=== PATIENT | male | born 1950 | race Hispanic/Latino ===

== ENCOUNTER → 2017-07-30 | Outpatient (CLI) | payer MEDICARE ==
[~2017-07-30] MED LIST: REGADENOSON 0.4 MG/5 ML PF SYG IVP SCH
== END | disposition home or self-care (01) ==
LOC: SHCH 09:41
PROVIDERS: ATTEND Internal Medicine Cardiovascular Disease
DX: Z01.810 Encounter for preprocedural cardiovascular examination (principal)
CPT/HCPCS: 78452; 93017; 96374; A9500 ×2; J2785

== ENCOUNTER → 2020-10-10 | Outpatient (CLI) | payer MEDICARE | END | disposition home or self-care (01) | LOC: RAH 12:31 | PROVIDERS: ATTEND Internal Medicine Cardiovascular Disease | DX: J44.9 Chronic obstructive pulmonary disease, unspecified (principal); R91.8 Other nonspecific abnormal finding of lung field; I25.10 Atherosclerotic heart disease of native coronary artery without angina pectoris; J98.11 Atelectasis; J18.9 Pneumonia, unspecified organism; I50.40 Unspecified combined systolic (congestive) and diastolic (congestive) heart failure; K76.0 Fatty (change of) liver, not elsewhere classified; M47.815 Spondylosis without myelopathy or radiculopathy, thoracolumbar region; N28.1 Cyst of kidney, acquired | CPT/HCPCS: 71250 ==

== ENCOUNTER → 2021-01-11 | Outpatient (CLI) | payer MEDICARE ==
[~2021-01-11] VITALS: Ht 167.6 cm; Wt 81.2 kg
== END | disposition home or self-care (01) ==
LOC: SHCH 08:23
PROVIDERS: ATTEND Internal Medicine Cardiovascular Disease
DX: R42 Dizziness and giddiness (principal); R07.9 Chest pain, unspecified; R07.0 Pain in throat; R06.00 Dyspnea, unspecified
CPT/HCPCS: 78452; 93017; 96374; A9500 ×2

== ENCOUNTER 2021-02-28 07:00 | Observation (INO) | payer MEDICARE ==
[2021-02-27 13:43] LABS: BASOPHILS % (AUTO) 0.2 % (0.0-5.0); EOSINOPHILS % (AUTO) 5.6 % (0.0-8.0); HEMATOCRIT 29.6 % (42-54); LYMPHOCYTES % (AUTO) 38.1 % (21.0-51.0); MEAN CORPUSCULAR HEMOGLOBIN 36.3 pg (27.0-33.0); MEAN CORPUSCULAR HGB CONC 33.1 g/dL (32.0-36.0); MEAN CORPUSCULAR VOLUME 109.6 fL (79-99); MONOCYTES % (AUTO) 7.4 % (3.0-13.0); NEUTROPHILS % (AUTO) 48.5 % (40.0-77.0); PLATELET COUNT (AUTO) 109 K/uL (130-400); RED CELL DISTRIBUTION WIDTH 14.5 % (11.0-15.5); WHITE BLOOD COUNT (AUTO) 4.3 K/uL (4.8-10.8)
[2021-02-27 13:44] LABS: APPEARANCE,URINE Clear (CLEAR); BILIRUBIN,URINE Negative (NEGATIVE); COLOR,URINE Yellow (YELLOW); GLUCOSE, URINE (UA) Negative (NEGATIVE); KETONES,URINE Negative (NEGATIVE); LEUKOCYTE ESTERASE ,URINE Negative (NEGATIVE); NITRATE,URINE Negative (NEGATIVE); OCCULT BLOOD,URINE Negative (NEGATIVE); PH,URINE 7.5 (5.0-8.0); PROTEIN,URINE Negative (NEGATIVE); UROBILINOGEN,URINE 0.2 mg/dL (0.2-1.0)
[2021-02-27 13:52] LABS: CREATININE 1.3 mg/dL (0.5-1.5); INR 1.59 (0.85-1.15); POTASSIUM 4.7 mmol/L (3.5-5.1); PROTHROMBIN TIME 16.6 SEC (9.6-11.6)
[2021-02-27 13:53] LABS: PARTIAL THROMBOPLASTIN TIME 31.6 SEC (26.3-35.5)
[2021-02-27 16:42] VITALS: BP 99/57
[~2021-02-28] VITALS: Ht 167.6 cm; Wt 79.1 kg
[2021-02-28] VITALS (11 sets, daily range): BP systolic 124–149; BP diastolic 56–78
[~2021-02-28 07:00] MED LIST changes: +0.9% NACL 500ML IV.SOLN 500 ML IV SCH; +ALBU8.5H8 IH; +ATOR40TA69 PO; +FLUT1AER IH; +FURO-152 PO; +LISI20TA24 PO; +METF-445 PO; +QUET300T18 PO; -REGADENOSON 0.4 MG/5 ML PF SYG IVP SCH; +TRAZ150T79 PO; +VITAMIN B12 PO; +WARF-57 PO
[2021-02-28] MEDS ORDERED: 0.9%NACL 1000ML 1,000 ML IV ONE (08:26)
[2021-02-28 09:12] LABS: INR 1.27 (0.85-1.15); PROTHROMBIN TIME 13.5 SEC (9.6-11.6)
[2021-02-28] MEDS ORDERED: BIVALIRUDIN 250 MG/VIAL IV ONE (10:12)
[2021-02-28] MEDS ORDERED: MIDAZOLAM HCL 1 MG/ML 2ML VIAL ONE (10:12)
[2021-02-28] MEDS ORDERED: IOHEXOL-350 50ML VIAL IV ONE (10:12)
[2021-02-28] MEDS ORDERED: IOHEXOL 350 MG/ML 100ML INFUS..BTL IV ONE (10:12)
[2021-02-28] MEDS ORDERED: NITROGLYCERIN 2 MG VIAL IV ONE (10:12)
[2021-02-28] MEDS ORDERED: LIDOCAINE HCL 400MG/20ML VIAL ONE (10:13)
[2021-02-28] MEDS ORDERED: FENTANYL CITRATE PF 50 MCG/1 ML 2ML VIAL ONE (11:39)
[2021-02-28] MEDS ORDERED: CLOPIDOGREL 300MG TAB ONE (11:58)
[2021-02-28] MEDS ORDERED: ASPIRIN 325MG EC TAB PO ONE (11:59)
[2021-02-28] MEDS ORDERED: ONDANSETRON 4MG INJ IVP PRN (13:00)
[2021-02-28] MEDS ORDERED: DEXTROSE 50%-WATER 50 ML DISP.SYRIN IV PRN (13:00)
[2021-02-28] MEDS ORDERED: 0.9%NACL 1000ML 1,000 ML IV SCH (13:00)
[2021-02-28] MEDS ORDERED: GLUCAGON 1MG KIT 1 MG ML IM PRN (13:00)
[2021-02-28] MEDS: INSULIN HUMULIN R 100 UNIT/ML 3ML SQ SCH ×2 (16:30→20:45)
[2021-02-28] MEDS: WARFARIN SODIUM 5 MG TAB PO SCH (16:54)
[2021-02-28] MEDS ORDERED: ALBUTEROL 0.083% 2.5 MG/3 ML INH IH SCH (18:00)
[2021-02-28] MEDS ORDERED: BUDESONIDE 0.5 MG/2 ML INH IH SCH (18:00)
[2021-02-28] MEDS ORDERED: TRAZODONE HCL 50 MG TAB PO SCH (21:00)
[2021-02-28] MEDS ORDERED: QUETIAPINE FUMARATE 100 MG TAB PO SCH (21:00)
[2021-02-28] MEDS ORDERED: ATORVASTATIN 40 MG TABLET PO SCH (21:00)
[2021-03-01] VITALS: BP 102/54
[2021-03-01 04:00] VITALS: BP 116/51
[2021-03-01 04:31] LABS: HEMATOCRIT 26.2 % (42-54); MEAN CORPUSCULAR HEMOGLOBIN 36.5 pg (27.0-33.0); MEAN CORPUSCULAR HGB CONC 33.6 g/dL (32.0-36.0); MEAN CORPUSCULAR VOLUME 108.7 fL (79-99); RED BLOOD CELL COUNT(AUTO) 2.41 MIL/uL (4.50-6.20); RED CELL DISTRIBUTION WIDTH 14.1 % (11.0-15.5)
[2021-03-01 04:41] LABS: INR 1.18 (0.85-1.15); PROTHROMBIN TIME 12.7 SEC (9.6-11.6)
[2021-03-01 04:47] LABS: POTASSIUM 4.1 mmol/L (3.5-5.1)
[2021-03-01] MEDS: INSULIN HUMULIN R 100 UNIT/ML 3ML SQ SCH ×2 (06:49→11:30)
[2021-03-01 08:33] VITALS: BP 139/69
[2021-03-01] MEDS ORDERED: ASPIRIN 81MG CHEW TAB PO SCH (09:00)
[2021-03-01] MEDS ORDERED: CLOPIDOGREL 75MG TAB PO SCH (09:00)
[2021-03-01] MEDS ORDERED: LISINOPRIL 20 MG TABLET PO SCH (09:00)
[2021-03-01] MEDS ORDERED: PANTOPRAZOLE 40 MG TAB DR PO SCH (09:00)
[2021-03-01] MEDS ORDERED: AEC81 PO (09:45)
[2021-03-01] MEDS ORDERED: ENOX80DI8 SQ (09:45)
[2021-03-01] MEDS ORDERED: CLOP75TA14 PO (09:45)
[2021-03-01] MEDS ORDERED: PANT40TA55 PO (09:58)
[2021-03-01] MEDS ORDERED: ENOXAPARIN SODIUM 80 MG/0.8 ML SQ ONE ×2 (10:00→12:49)
[2021-03-01] MEDS ORDERED: WARFARIN SODIUM 5 MG TAB PO SCH (10:00)
[2021-03-01 11:34] VITALS: BP 137/67
[2021-03-01] MEDS ORDERED: ENOXAPARIN SODIUM 80 MG/0.8 ML SQ SCH (13:00)
[2021-03-01] MEDS: WARFARIN SODIUM 5 MG TAB PO SCH (13:07)
[2021-03-02] MEDS ORDERED: FUROSEMIDE 20 MG TABLET PO SCH (09:00)
== END 2021-03-01 15:01 | disposition home or self-care (01) ==
LOC: DAH 07:00 → DAHIP 07:01 → 4CH 13:54
PROVIDERS: ADMIT Internal Medicine; ATTEND Internal Medicine
DX: I25.10 Atherosclerotic heart disease of native coronary artery without angina pectoris (principal); E11.9 Type 2 diabetes mellitus without complications; E03.9 Hypothyroidism, unspecified; E78.5 Hyperlipidemia, unspecified; F20.9 Schizophrenia, unspecified; F43.10 Post-traumatic stress disorder, unspecified; I09.9 Rheumatic heart disease, unspecified; I11.0 Hypertensive heart disease with heart failure; I50.32 Chronic diastolic (congestive) heart failure; Z79.01 Long term (current) use of anticoagulants; Z79.02 Long term (current) use of antithrombotics/antiplatelets; Z95.5 Presence of coronary angioplasty implant and graft; Z95.2 Presence of prosthetic heart valve; Z96.651 Presence of right artificial knee joint
CPT/HCPCS: 36415 ×3; 71045; 80048 ×2; 81003; 82948 ×5; 85025; 85027; 85610 ×3; 85730; 93005; 93458; 96372; A4215; A4216; A4221; A4222; A4223 ×3; A4606; A4663; C1725; C1760; C1769; C1874; C1887; C1894 ×2; C9600; G0378 ×26; J0583; J1644; J1650; J2250; J3010; J3490 ×2; J7030; Q9965 ×2; Q9967 ×2; 99156; 99157

== ENCOUNTER 2021-05-31 11:52 | Emergency (ER) | payer MEDICARE ==
[~2021-05-31] VITALS: Ht 170.2 cm; Wt 68.0 kg
[~2021-05-31 11:52] MED LIST changes: -0.9% NACL 500ML IV.SOLN 500 ML IV SCH; +AEC81 PO; +CLOP75TA14 PO; +ENOX80DI8 SQ; +PANT40TA55 PO; -QUET300T18 PO; +QUET300T19 PO
[2021-05-31 11:53] VITALS: BP 117/73
[2021-05-31] MEDS ORDERED: ACET-2247 PO (12:14)
[2021-05-31] MEDS ORDERED: CLIN-141 PO (12:14)
[2021-05-31] MEDS ORDERED: CLINDAMYCIN 150 MG CAP PO SCH (12:30)
[2021-05-31] MEDS ORDERED: ACETAMINOPHEN 500 MG TABLET PO SCH (12:30)
[2021-05-31 12:44] LABS: EOSINOPHILS % (AUTO) 2.1 % (0.0-8.0); HEMATOCRIT 25.2 % (42-54); LYMPHOCYTES % (AUTO) 22.2 % (21.0-51.0); MEAN CORPUSCULAR HEMOGLOBIN 36.9 pg (27.0-33.0); MEAN CORPUSCULAR HGB CONC 34.1 g/dL (32.0-36.0); MEAN CORPUSCULAR VOLUME 108.2 fL (79-99); MONOCYTES % (AUTO) 9.1 % (3.0-13.0); NEUTROPHILS % (AUTO) 66.1 % (40.0-77.0); PLATELET COUNT (AUTO) 116 K/uL (130-400); RED BLOOD CELL COUNT(AUTO) 2.33 MIL/uL (4.50-6.20); RED CELL DISTRIBUTION WIDTH 14.8 % (11.0-15.5); WHITE BLOOD COUNT (AUTO) 3.8 K/uL (4.8-10.8)
[2021-05-31 12:56] LABS: POTASSIUM 3.6 mmol/L (3.5-5.1)
[2021-05-31 13:02] LABS: ALBUMIN 3.2 g/dL (3.5-5.0); BILIRUBIN,TOTAL 0.3 mg/dL (0.2-1.0); TOTAL PROTEIN, SERUM 6.5 g/dL (6.0-8.3)
== END 2021-05-31 13:27 | disposition home or self-care (01) ==
LOC: EDH 11:52
DX: N50.89 Other specified disorders of the male genital organs (principal); D64.9 Anemia, unspecified; E11.9 Type 2 diabetes mellitus without complications; E78.00 Pure hypercholesterolemia, unspecified; I10 Essential (primary) hypertension; Z79.01 Long term (current) use of anticoagulants; Z79.51 Long term (current) use of inhaled steroids; Z79.82 Long term (current) use of aspirin; Z79.84 Long term (current) use of oral hypoglycemic drugs; Z79.899 Other long term (current) drug therapy; Z95.2 Presence of prosthetic heart valve
CPT/HCPCS: 36415; 80053; 82948; 85025

== ENCOUNTER → 2023-04-13 | Outpatient (CLI) | payer MEDICARE ==
[~2023-04-13] MED LIST changes: +ACET-2247 PO; +CLIN-141 PO; +CLOP-31 PO; -CLOP75TA14 PO
== END | disposition home or self-care (01) ==
LOC: RAH 09:17
PROVIDERS: ATTEND Internal Medicine Medical Oncology
DX: K76.0 Fatty (change of) liver, not elsewhere classified (principal); N28.1 Cyst of kidney, acquired; D50.9 Iron deficiency anemia, unspecified
CPT/HCPCS: 76700

== ENCOUNTER 2023-07-14 13:05 | Inpatient (IN) | payer MEDICARE ==
[~2023-07-14] VITALS: Ht 167.6 cm; Wt 77.7 kg
[2023-07-14] MEDS ORDERED: ONDANSETRON 4MG INJ IVP ONE (14:00)
[2023-07-14] MEDS ORDERED: MORPHINE 4 MG SYG IVP ONE (14:00)
[2023-07-14] MEDS ORDERED: LACTATED RINGERS 1000ML 1,000 ML IV ONE (15:30)
[2023-07-14] MEDS ORDERED: HYDROMORPHONE 1 MG INJ IVP ONE (15:30)
[2023-07-14 16:32] LABS: MEAN CORPUSCULAR HEMOGLOBIN 36.6 pg (27.0-33.0); MEAN CORPUSCULAR HGB CONC 32.8 g/dL (32.0-36.0); MEAN CORPUSCULAR VOLUME 111.6 fL (79-99); NUCLEATED RED BLOOD CELLS 29.6 % (0.0-0.19); PLATELET COUNT (AUTO) 162 K/uL (130-400); RED BLOOD CELL COUNT(AUTO) 1.72 MIL/uL (4.50-6.20); RED CELL DISTRIBUTION WIDTH 19.5 % (11.0-15.5); WHITE BLOOD COUNT (AUTO) 4.5 K/uL (4.8-10.8)
[2023-07-14 16:50] LABS: HEMATOCRIT 19.2 % (42-54)
[2023-07-14 16:54] LABS: ALBUMIN 2.9 g/dL (3.5-5.0); BILIRUBIN,TOTAL 0.8 mg/dL (0.2-1.0); CREATININE 1.5 mg/dL (0.5-1.5); POTASSIUM 4.5 mmol/L (3.5-5.1); TOTAL PROTEIN, SERUM 5.7 g/dL (6.0-8.3)
[2023-07-14 17:25] LABS: BAND NEUTROPHILS % (MANUAL) 7 % (0-2); LYMPHOCYTES % (MANUAL) 24 % (22-44); MAN.DIFF COMMENT-IMPRESSION MANUAL DIFFERENTIAL; METAMYELOCYTES % 2 % (0-0); SEGMENTED NEUTROPHILS % 67 % (40-70); TOTAL CELLS COUNTED 100
[2023-07-14 17:26] LABS: PLATELET MORPHOLOGY COMMENT ADEQUATE
[2023-07-14] MEDS ORDERED: LACTULOSE 20 GM/30 ML UDCUP PO PRN (19:00)
[2023-07-14] MEDS ORDERED: ACETAMINOPHEN 325 MG TAB PO PRN ×2 (19:00)
[2023-07-14] MEDS ORDERED: ONDANSETRON 4MG INJ IV PRN (19:00)
[2023-07-14] MEDS: LACTATED RINGERS 1000ML 1,000 ML IV SCH (19:07)
[2023-07-14] MEDS: MORPHINE 2 MG SYG IV PRN (19:08)
[2023-07-14] MEDS ORDERED: NON-FORMULARY MEDICATION 1 EACH (Trazodone HCl 150 MG) PO SCH (21:00)
[2023-07-14] MEDS ORDERED: NON-FORMULARY MEDICATION 1 EACH (Quetiapine Fumarate 300 MG) PO SCH (21:00)
[2023-07-14] MEDS ORDERED: FAMOTIDINE 20MG VIAL IV SCH (21:00)
[2023-07-14] MEDS: TRAZODONE HCL 100 MG TABLET PO PRN (21:09)
[2023-07-14] MEDS: QUETIAPINE FUMARATE 100 MG TAB PO SCH (21:09)
[2023-07-14] MEDS: ATORVASTATIN 40 MG TABLET PO SCH (21:09)
[2023-07-14] MEDS ORDERED: HYDROMORPHONE 0.5 MG SYG (0.5MG/0.5ML) IVP ONE (21:30)
[2023-07-14 22:15] VITALS: BP 125/82; PULSE 101; RESP 19
[2023-07-14 22:17] LABS: HEMATOCRIT 17.3 % (42-54)
[2023-07-14 22:22] LABS: INR 1.8 (0.85-1.15); PROTHROMBIN TIME 20.1 SEC (9.6-11.6)
[2023-07-14] MEDS ORDERED: ALBUTEROL 0.083% 2.5 MG/3 ML INH IH ONE (22:39)
[2023-07-15] VITALS (13 sets, daily range): BP systolic 102–132; BP diastolic 42–74; PULSE 70–106; RESP 16–20; O2SAT 94–96
[2023-07-15] MEDS ORDERED: ALBUTEROL SULFATE IH SCH
[2023-07-15] MEDS: ALBUTEROL 0.083% 2.5 MG/3 ML INH IH SCH ×5 (00:07→23:12)
[2023-07-15 01:51] LABS: HEMATOCRIT 17.2 % (42-54)
[2023-07-15] MEDS: INSULIN HUMULIN R 100 UNIT/ML 3ML SQ SCH ×6 (02:24→22:59)
[2023-07-15] MEDS: LACTATED RINGERS 1000ML 1,000 ML IV SCH ×2 (04:38→09:41)
[2023-07-15 05:25] LABS: HEMATOCRIT 16.6 % (42-54)
[2023-07-15 05:32] LABS: CREATININE 1.8 mg/dL (0.5-1.5)
[2023-07-15 05:42] LABS: POTASSIUM 6.1 mmol/L (3.5-5.1)
[2023-07-15 08:59] LABS: HEMATOCRIT 16.5 % (42-54)
[2023-07-15] MEDS ORDERED: CYANOCOBALAMIN (VITAMIN B-12) 1,000 MCG TABLET PO SCH (09:00)
[2023-07-15] MEDS: FLUTICASONE/VILANTEROL 1 EACH AER.POW.BA IH SCH (09:00)
[2023-07-15] MEDS: LISINOPRIL 20 MG TABLET PO SCH (09:00)
[2023-07-15] MEDS ORDERED: COMPOUND IV REFRIGERATED 1 EACH IVSOLN MISC PRN (12:00)
[2023-07-15] MEDS ORDERED: EPOETIN ALFA-EPBX (NON-ESRD) 10,000 UNIT/ML VIAL SQ ONE (12:00)
[2023-07-15 12:06] LABS: HEMOGLOBIN A1C 6.2 % (4.0-6.0)
[2023-07-15] MEDS: CEFTRIAXONE 1G VIAL IVPB SCH (12:06)
[2023-07-15 13:06] LABS: HEMATOCRIT 15.6 % (42-54)
[2023-07-15 13:18] LABS: % IRON SATURATION 20.4 % (30-44)
[2023-07-15] MEDS: CYANOCOBALAMIN (VITAMIN B-12) 1000 MCG/ML 1ML VIAL IM SCH (14:16)
[2023-07-15] MEDS: IRON SUCROSE COMPLEX 300 MG in 0.9% NACL 250ML 250 ML IV SCH (14:26)
[2023-07-15] MEDS: MORPHINE 2 MG SYG IV PRN (15:06)
[2023-07-15] MEDS ORDERED: GLUCAGON 1MG KIT 1 MG ML IM PRN (15:30)
[2023-07-15] MEDS ORDERED: MAGNESIUM 2GM PREMIX 50ML 50 ML IV PRN (15:30)
[2023-07-15] MEDS ORDERED: DEXTROSE 50%-WATER 50 ML DISP.SYRIN IV PRN (15:30)
[2023-07-15] MEDS ORDERED: POTASSIUM CHLORIDE 20MEQ/100ML 100 ML IV PRN (15:30)
[2023-07-15] MEDS: KETOROLAC 15MG/ML VIAL (15MG/ML) IV PRN (17:56)
[2023-07-15] MEDS: QUETIAPINE FUMARATE 100 MG TAB PO SCH (20:47)
[2023-07-15] MEDS: ATORVASTATIN 40 MG TABLET PO SCH (20:47)
[2023-07-15] MEDS: INSULIN GLARGINE 100 UNITS/ML 10 ML VIAL SQ SCH (22:59)
[2023-07-16] VITALS (9 sets, daily range): BP systolic 102–132; BP diastolic 46–61; PULSE 91–107; RESP 16–20; O2SAT 96
[2023-07-16] MEDS: LACTATED RINGERS 1000ML 1,000 ML IV SCH ×3 (00:44→21:06)
[2023-07-16] MEDS: INSULIN HUMULIN R 100 UNIT/ML 3ML SQ SCH ×7 (05:25→20:46)
[2023-07-16] MEDS: ALBUTEROL 0.083% 2.5 MG/3 ML INH IH SCH ×4 (06:12→23:59)
[2023-07-16] MEDS: FLUTICASONE/VILANTEROL 1 EACH AER.POW.BA IH SCH (09:00)
[2023-07-16] MEDS: MORPHINE 2 MG SYG IV PRN (09:29)
[2023-07-16] MEDS: CYANOCOBALAMIN (VITAMIN B-12) 1000 MCG/ML 1ML VIAL IM SCH (09:32)
[2023-07-16] MEDS: PANTOPRAZOLE 40 MG/VIAL IVP SCH (09:32)
[2023-07-16] MEDS: Vitamin B Complex/Vit C/Folic Acid PO SCH (09:33)
[2023-07-16] MEDS: FUROSEMIDE 20 MG TABLET PO SCH (09:33)
[2023-07-16] MEDS: LISINOPRIL 20 MG TABLET PO SCH (09:34)
[2023-07-16] MEDS: CEFTRIAXONE 1G VIAL IVPB SCH (12:26)
[2023-07-16] MEDS: HYDROMORPHONE 0.5 MG SYG (0.5MG/0.5ML) IVP PRN ×2 (14:24→21:11)
[2023-07-16] MEDS: INSULIN GLARGINE 100 UNITS/ML 10 ML VIAL SQ SCH (20:45)
[2023-07-16] MEDS: QUETIAPINE FUMARATE 100 MG TAB PO SCH (21:01)
[2023-07-16] MEDS: ATORVASTATIN 40 MG TABLET PO SCH (21:01)
[2023-07-17] VITALS (14 sets, daily range): BP systolic 86–122; BP diastolic 32–105; PULSE 63–111; RESP 16–20; O2SAT 92–99
[2023-07-17] MEDS: HYDROMORPHONE 0.5 MG SYG (0.5MG/0.5ML) IVP PRN (05:46)
[2023-07-17] MEDS: ALBUTEROL 0.083% 2.5 MG/3 ML INH IH SCH ×4 (06:22→23:45)
[2023-07-17] MEDS: LACTATED RINGERS 1000ML 1,000 ML IV SCH ×2 (06:42→17:00)
[2023-07-17] MEDS: INSULIN HUMULIN R 100 UNIT/ML 3ML SQ SCH ×7 (07:30→20:28)
[2023-07-17] MEDS: LISINOPRIL 20 MG TABLET PO SCH (08:11)
[2023-07-17] MEDS: Vitamin B Complex/Vit C/Folic Acid PO SCH (08:29)
[2023-07-17] MEDS: PANTOPRAZOLE 40 MG/VIAL IVP SCH (08:29)
[2023-07-17] MEDS: IRON SUCROSE COMPLEX 300 MG in 0.9% NACL 250ML 250 ML IV SCH (08:33)
[2023-07-17] MEDS ORDERED: PHARMACY COMMUNICATION MISC SCH (10:30)
[2023-07-17 11:18] LABS: MEAN CORPUSCULAR HEMOGLOBIN 35.1 pg (27.0-33.0); MEAN CORPUSCULAR HGB CONC 30.2 g/dL (32.0-36.0); MEAN CORPUSCULAR VOLUME 116.2 fL (79-99); NUCLEATED RED BLOOD CELLS 22.5 % (0.0-0.19); PLATELET COUNT (AUTO) 133 K/uL (130-400); RED BLOOD CELL COUNT(AUTO) 1.11 MIL/uL (4.50-6.20); RED CELL DISTRIBUTION WIDTH 20.8 % (11.0-15.5); WHITE BLOOD COUNT (AUTO) 2.7 K/uL (4.8-10.8)
[2023-07-17 11:19] LABS: ABG OXYGEN SATURATION 75.7 % (95.0-99.0); HCO3,VENOUS BLOOD GAS 23.1 (21.0-28.0); PCO2,VENOUS BLOOD GAS 34 (32-45); PH,VENOUS BLOOD GAS 7.448 (7.350-7.450); PO2,VENOUS BLOOD GAS 43.1 mmHg (35.0-45.0)
[2023-07-17 11:28] LABS: HEMATOCRIT 12.9 % (42-54)
[2023-07-17 11:33] LABS: CREATININE 1.3 mg/dL (0.5-1.5); POTASSIUM 3.9 mmol/L (3.5-5.1)
[2023-07-17 11:38] LABS: ALBUMIN 2.2 g/dL (3.5-5.0); BILIRUBIN,TOTAL 0.8 mg/dL (0.2-1.0); TOTAL PROTEIN, SERUM 5.4 g/dL (6.0-8.3)
[2023-07-17] MEDS: CYANOCOBALAMIN (VITAMIN B-12) 1000 MCG/ML 1ML VIAL IM SCH (11:40)
[2023-07-17] MEDS: FLUTICASONE/VILANTEROL 1 EACH AER.POW.BA IH SCH (11:40)
[2023-07-17] MEDS: CEFTRIAXONE 1G VIAL IVPB SCH (11:44)
[2023-07-17 12:08] LABS: LYMPHOCYTES % (MANUAL) 62 % (22-44); MAN.DIFF COMMENT-IMPRESSION MANUAL DIFFERENTIAL; MONOCYTES % (MANUAL) 4 % (2-9); PLATELET MORPHOLOGY COMMENT ADEQUATE; SEGMENTED NEUTROPHILS % 34 % (40-70); TOTAL CELLS COUNTED 100
[2023-07-17] MEDS ORDERED: VANCOMYCIN PROTOCOL PER PHARMACY IV SCH (12:30)
[2023-07-17] MEDS: VANCOMYCIN 1.25 GM/250 ML BAG 250 ML IV SCH (12:59)
[2023-07-17] MEDS ORDERED: EPOETIN ALFA-EPBX (NON-ESRD) 10,000 UNIT/ML VIAL SQ ONE (14:00)
[2023-07-17] MEDS: ZOSYN 3.375GM +NS 50ML IV SCH ×2 (14:45→19:45)
[2023-07-17] MEDS: M.V.I. IV [ADULT] 10 ML, THIAMINE HCL 100 MG, FOLIC ACID 1 MG in 0.9%NACL 1000ML 1,000 ML IV SCH (18:13)
[2023-07-17] MEDS: ATORVASTATIN 40 MG TABLET PO SCH (19:45)
[2023-07-17] MEDS: QUETIAPINE FUMARATE 100 MG TAB PO SCH (19:45)
[2023-07-17] MEDS: INSULIN GLARGINE 100 UNITS/ML 10 ML VIAL SQ SCH (20:28)
[2023-07-17] MEDS ORDERED: HALOPERIDOL INJ 5 MG/ML VIAL IM STA (23:28)
[2023-07-18] VITALS (13 sets, daily range): BP systolic 92–110; BP diastolic 48–60; PULSE 94–109; RESP 16–20; O2SAT 93–100
[2023-07-18] MEDS: LACTATED RINGERS 1000ML 1,000 ML IV SCH ×3 (02:27→22:33)
[2023-07-18] MEDS: ZOSYN 3.375GM +NS 50ML IV SCH ×3 (03:26→20:08)
[2023-07-18] MEDS: MORPHINE 2 MG SYG IV PRN (03:37)
[2023-07-18] MEDS: KETOROLAC 15MG/ML VIAL (15MG/ML) IV PRN (04:50)
[2023-07-18 04:53] LABS: IMMATURE GRANULOCYTE ABSOLUTE 0.05 K/uL (0-1); LYMPHOCYTES # (AUTO) 1.1 K/uL (1.0-4.8); LYMPHOCYTES % (AUTO) 40.3 % (21.0-51.0); MEAN CORPUSCULAR HEMOGLOBIN 35.6 pg (27.0-33.0); MEAN CORPUSCULAR HGB CONC 30.8 g/dL (32.0-36.0); MEAN CORPUSCULAR VOLUME 115.4 fL (79-99); MONOCYTES # (AUTO) 0.3 K/uL (0.1-1.0); MONOCYTES % (AUTO) 10.1 % (3.0-13.0); NEUTROPHILS # (AUTO) 1.3 K/uL (1.8-7.7); NEUTROPHILS % (AUTO) 47.7 % (40.0-77.0); NUCLEATED RED BLOOD CELLS 27.6 % (0.0-0.19); PLATELET COUNT (AUTO) 127 K/uL (130-400); RED BLOOD CELL COUNT(AUTO) 1.04 MIL/uL (4.50-6.20); RED CELL DISTRIBUTION WIDTH 20.6 % (11.0-15.5); WHITE BLOOD COUNT (AUTO) 2.7 K/uL (4.8-10.8)
[2023-07-18] MEDS: INSULIN HUMULIN R 100 UNIT/ML 3ML SQ SCH ×7 (05:58→20:09)
[2023-07-18] MEDS: ALBUTEROL 0.083% 2.5 MG/3 ML INH IH SCH ×4 (06:05→23:34)
[2023-07-18] MEDS: FUROSEMIDE 20 MG TABLET PO SCH (09:00)
[2023-07-18] MEDS: LISINOPRIL 20 MG TABLET PO SCH (09:00)
[2023-07-18] MEDS: Vitamin B Complex/Vit C/Folic Acid PO SCH (10:43)
[2023-07-18] MEDS: CYANOCOBALAMIN (VITAMIN B-12) 1000 MCG/ML 1ML VIAL IM SCH (10:43)
[2023-07-18] MEDS: PANTOPRAZOLE 40 MG/VIAL IVP SCH (10:43)
[2023-07-18] MEDS: M.V.I. IV [ADULT] 10 ML, THIAMINE HCL 100 MG, FOLIC ACID 1 MG in 0.9%NACL 1000ML 1,000 ML IV SCH (10:47)
[2023-07-18] MEDS: IRON SUCROSE COMPLEX 300 MG in 0.9% NACL 250ML 250 ML IV SCH (10:47)
[2023-07-18] MEDS: FLUTICASONE/VILANTEROL 1 EACH AER.POW.BA IH SCH (10:47)
[2023-07-18] MEDS: VANCOMYCIN 1.25 GM/250 ML BAG 250 ML IV SCH (14:37)
[2023-07-18 16:10] LABS: RAPID GROUP A STREP negative (NEGATIVE)
[2023-07-18 16:14] LABS: SARS-CoV-2, RNA, NAAT NEGATIVE SARS CoV-2 (NEGATIVE)
[2023-07-18 16:18] LABS: INFLUENZA TYPE A Negative For Type A (NEGATIVE); INFLUENZA TYPE B Negative For Type B (NEGATIVE)
[2023-07-18] MEDS: ATORVASTATIN 40 MG TABLET PO SCH (20:09)
[2023-07-18] MEDS: INSULIN GLARGINE 100 UNITS/ML 10 ML VIAL SQ SCH (20:09)
[2023-07-18] MEDS: TRAZODONE HCL 100 MG TABLET PO PRN (20:09)
[2023-07-18] MEDS: QUETIAPINE FUMARATE 100 MG TAB PO SCH (20:09)
[2023-07-19] VITALS (10 sets, daily range): BP systolic 106–121; BP diastolic 43–58; PULSE 91–100; RESP 18–20; O2SAT 96–100
[2023-07-19] MEDS: ZOSYN 3.375GM +NS 50ML IV SCH ×3 (04:06→20:06)
[2023-07-19] MEDS: ALBUTEROL 0.083% 2.5 MG/3 ML INH IH SCH ×4 (06:12→23:33)
[2023-07-19] MEDS: INSULIN HUMULIN R 100 UNIT/ML 3ML SQ SCH ×7 (06:21→20:34)
[2023-07-19] MEDS: LACTATED RINGERS 1000ML 1,000 ML IV SCH ×2 (07:55→19:00)
[2023-07-19] MEDS: KETOROLAC 15MG/ML VIAL (15MG/ML) IV PRN (07:56)
[2023-07-19] MEDS: PANTOPRAZOLE 40 MG/VIAL IVP SCH (07:56)
[2023-07-19] MEDS: Vitamin B Complex/Vit C/Folic Acid PO SCH (07:56)
[2023-07-19] MEDS: FLUTICASONE/VILANTEROL 1 EACH AER.POW.BA IH SCH (07:57)
[2023-07-19] MEDS: LISINOPRIL 20 MG TABLET PO SCH (07:57)
[2023-07-19] MEDS ORDERED: HEMORRHOIDAL OINTMENT 57 GM CREAM.GM. RC PRN (11:00)
[2023-07-19] MEDS: M.V.I. IV [ADULT] 10 ML, THIAMINE HCL 100 MG, FOLIC ACID 1 MG in 0.9%NACL 1000ML 1,000 ML IV SCH (12:26)
[2023-07-19] MEDS: VANCOMYCIN 1.25 GM/250 ML BAG 250 ML IV SCH (14:18)
[2023-07-19] MEDS: MORPHINE 2 MG SYG IV PRN (15:15)
[2023-07-19] MEDS: ATORVASTATIN 40 MG TABLET PO SCH (20:06)
[2023-07-19] MEDS: QUETIAPINE FUMARATE 100 MG TAB PO SCH (20:06)
[2023-07-19] MEDS: TRAZODONE HCL 100 MG TABLET PO PRN (20:06)
[2023-07-19] MEDS: INSULIN GLARGINE 100 UNITS/ML 10 ML VIAL SQ SCH (20:34)
[2023-07-20] VITALS (12 sets, daily range): BP systolic 102–113; BP diastolic 30–49; PULSE 58–97; RESP 18; O2SAT 97–99
[2023-07-20] MEDS: ZOSYN 3.375GM +NS 50ML IV SCH ×3 (04:15→19:38)
[2023-07-20 04:37] LABS: BASOPHILS # (AUTO) 0.02 K/uL (0.00-0.20); BASOPHILS % (AUTO) 0.6 % (0.0-5.0); EOSINOPHILS # (AUTO) 0.04 K/uL (0.00-0.70); EOSINOPHILS % (AUTO) 1.1 % (0.0-8.0); LYMPHOCYTES # (AUTO) 1.5 K/uL (1.0-4.8); LYMPHOCYTES % (AUTO) 43.1 % (21.0-51.0); MEAN CORPUSCULAR HEMOGLOBIN 34.8 pg (27.0-33.0); MEAN CORPUSCULAR HGB CONC 30.2 g/dL (32.0-36.0); MEAN CORPUSCULAR VOLUME 115.2 fL (79-99); MONOCYTES # (AUTO) 0.2 K/uL (0.1-1.0); MONOCYTES % (AUTO) 5.1 % (3.0-13.0); NEUTROPHILS # (AUTO) 1.7 K/uL (1.8-7.7); NEUTROPHILS % (AUTO) 47.2 % (40.0-77.0); NUCLEATED RED BLOOD CELLS 27.7 % (0.0-0.19); PLATELET COUNT (AUTO) 81 K/uL (130-400); RED BLOOD CELL COUNT(AUTO) 1.12 MIL/uL (4.50-6.20); RED CELL DISTRIBUTION WIDTH 21.2 % (11.0-15.5); WHITE BLOOD COUNT (AUTO) 3.5 K/uL (4.8-10.8)
[2023-07-20 04:52] LABS: POTASSIUM 3.2 mmol/L (3.5-5.1)
[2023-07-20] MEDS: LACTATED RINGERS 1000ML 1,000 ML IV SCH ×2 (05:00→16:44)
[2023-07-20 05:02] LABS: HEMATOCRIT 12.9 % (42-54)
[2023-07-20] MEDS: POTASSIUM CHLORIDE 10% ELIXIR 20 MEQ/15 ML UDCUP PO PRN ×2 (06:17→12:18)
[2023-07-20] MEDS: ALBUTEROL 0.083% 2.5 MG/3 ML INH IH SCH ×4 (06:37→22:57)
[2023-07-20] MEDS: INSULIN HUMULIN R 100 UNIT/ML 3ML SQ SCH ×7 (06:37→20:28)
[2023-07-20] MEDS ORDERED: EPOETIN ALFA-EPBX (NON-ESRD) 10,000 UNIT/ML VIAL SQ ONE (09:00)
[2023-07-20] MEDS: LISINOPRIL 20 MG TABLET PO SCH (09:00)
[2023-07-20] MEDS: FLUTICASONE/VILANTEROL 1 EACH AER.POW.BA IH SCH (09:50)
[2023-07-20] MEDS: PANTOPRAZOLE 40 MG/VIAL IVP SCH (09:50)
[2023-07-20] MEDS: Vitamin B Complex/Vit C/Folic Acid PO SCH (09:51)
[2023-07-20] MEDS: FUROSEMIDE 20 MG TABLET PO SCH (09:51)
[2023-07-20] MEDS: KETOROLAC 15MG/ML VIAL (15MG/ML) IV PRN (09:52)
[2023-07-20] MEDS: KCL 20 MEQ ERTAB PO PRN (10:05)
[2023-07-20] MEDS: VANCOMYCIN 1.25 GM/250 ML BAG 250 ML IV SCH (12:17)
[2023-07-20] MEDS ORDERED: COMPOUND IV REFRIGERATED 1 EACH IVSOLN MISC PRN (19:00)
[2023-07-20] MEDS ORDERED: IRON SUCROSE COMPLEX 100 MG/5 ML VIAL IVP ONE (19:00)
[2023-07-20] MEDS: ATORVASTATIN 40 MG TABLET PO SCH (19:38)
[2023-07-20] MEDS: QUETIAPINE FUMARATE 100 MG TAB PO SCH (19:38)
[2023-07-20] MEDS: CYANOCOBALAMIN (VITAMIN B-12) 1000 MCG/ML 1ML VIAL IM SCH (19:40)
[2023-07-20] MEDS ORDERED: IRON SUCROSE COMPLEX 200 MG in 0.9% NACL 250ML 250 ML IV SCH (21:00)
[2023-07-20] MEDS: INSULIN GLARGINE 100 UNITS/ML 10 ML VIAL SQ SCH (21:00)
[2023-07-20] MEDS ORDERED: IRON SUCROSE COMPLEX 200 MG in 0.9% NACL 250ML 250 ML IV ONE (21:00)
[2023-07-20] MEDS: IRON SUCROSE COMPLEX 100 MG/5 ML VIAL IVP SCH (21:22)
[2023-07-21] VITALS (10 sets, daily range): BP systolic 97–128; BP diastolic 45–59; PULSE 63–90; RESP 16–20; O2SAT 96–99
[2023-07-21] MEDS: LACTATED RINGERS 1000ML 1,000 ML IV SCH ×3 (00:16→21:03)
[2023-07-21] MEDS: ZOSYN 3.375GM +NS 50ML IV SCH ×3 (04:10→20:43)
[2023-07-21] MEDS: INSULIN HUMULIN R 100 UNIT/ML 3ML SQ SCH ×7 (05:35→20:31)
[2023-07-21] MEDS: ALBUTEROL 0.083% 2.5 MG/3 ML INH IH SCH (06:26)
[2023-07-21] MEDS: FOLIC ACID 1 MG TABLET PO SCH (08:52)
[2023-07-21] MEDS: Vitamin B Complex/Vit C/Folic Acid PO SCH (08:52)
[2023-07-21] MEDS: PANTOPRAZOLE 40 MG/VIAL IVP SCH (08:52)
[2023-07-21] MEDS ORDERED: EPOETIN ALFA-EPBX (NON-ESRD) 10,000 UNIT/ML VIAL SQ SCH ×2 (09:00)
[2023-07-21] MEDS ORDERED: LORAZEPAM 0.5 MG TABLET PO PRN (09:00)
[2023-07-21] MEDS: EPOETIN ALFA-EPBX (NON-ESRD) 10,000 UNIT/ML VIAL SQ SCH (10:22)
[2023-07-21] MEDS: FLUTICASONE/VILANTEROL 1 EACH AER.POW.BA IH SCH (10:22)
[2023-07-21] MEDS ORDERED: ALBUTEROL 0.083% 2.5 MG/3 ML INH IH PRN (11:00)
[2023-07-21] MEDS: VANCOMYCIN 1.25 GM/250 ML BAG 250 ML IV SCH (15:51)
[2023-07-21] MEDS ORDERED: HYDROMORPHONE 0.5 MG SYG (0.5MG/0.5ML) IVP ONE (16:00)
[2023-07-21] MEDS: ATORVASTATIN 40 MG TABLET PO SCH (20:43)
[2023-07-21] MEDS: QUETIAPINE FUMARATE 100 MG TAB PO SCH (20:44)
[2023-07-21] MEDS: IRON SUCROSE COMPLEX 100 MG/5 ML VIAL IVP SCH (20:49)
[2023-07-21] MEDS: CYANOCOBALAMIN (VITAMIN B-12) 1000 MCG/ML 1ML VIAL IM SCH (20:50)
[2023-07-21] MEDS: TRAMADOL HCL 50 MG TABLET PO PRN (20:56)
[2023-07-21] MEDS: INSULIN GLARGINE 100 UNITS/ML 10 ML VIAL SQ SCH (21:02)
[2023-07-22] VITALS (10 sets, daily range): BP systolic 103–125; BP diastolic 43–59; PULSE 75–87; RESP 16–18; O2SAT 97–100
[2023-07-22] MEDS: ZOSYN 3.375GM +NS 50ML IV SCH ×3 (04:04→21:42)
[2023-07-22] MEDS: INSULIN HUMULIN R 100 UNIT/ML 3ML SQ SCH ×7 (06:07→20:39)
[2023-07-22] MEDS: LACTATED RINGERS 1000ML 1,000 ML IV SCH ×2 (06:08→16:19)
[2023-07-22] MEDS: PANTOPRAZOLE 40 MG/VIAL IVP SCH (09:51)
[2023-07-22] MEDS: Vitamin B Complex/Vit C/Folic Acid PO SCH (09:51)
[2023-07-22] MEDS: FUROSEMIDE 20 MG TABLET PO SCH (09:53)
[2023-07-22] MEDS: FLUTICASONE/VILANTEROL 1 EACH AER.POW.BA IH SCH (09:54)
[2023-07-22] MEDS: FOLIC ACID 1 MG TABLET PO SCH (09:54)
[2023-07-22] MEDS: KCL 20 MEQ ERTAB PO PRN ×3 (10:02→18:48)
[2023-07-22] MEDS: TRAMADOL HCL 50 MG TABLET PO PRN ×2 (10:07→16:14)
[2023-07-22] MEDS ORDERED: ONDANSETRON 4MG TABLET PO PRN (15:00)
[2023-07-22] MEDS: VANCOMYCIN 1.25 GM/250 ML BAG 250 ML IV SCH (16:13)
[2023-07-22] MEDS: QUETIAPINE FUMARATE 100 MG TAB PO SCH (20:38)
[2023-07-22] MEDS: CYANOCOBALAMIN (VITAMIN B-12) 1000 MCG/ML 1ML VIAL IM SCH (20:38)
[2023-07-22] MEDS: ATORVASTATIN 40 MG TABLET PO SCH (20:38)
[2023-07-22] MEDS: INSULIN GLARGINE 100 UNITS/ML 10 ML VIAL SQ SCH (20:40)
[2023-07-22] MEDS: IRON SUCROSE COMPLEX 100 MG/5 ML VIAL IVP SCH (21:42)
[2023-07-23] VITALS (9 sets, daily range): BP systolic 104–126; BP diastolic 41–49; PULSE 74–91; RESP 16–19; O2SAT 96–100
[2023-07-23] MEDS: LACTATED RINGERS 1000ML 1,000 ML IV SCH ×3 (03:00→22:53)
[2023-07-23] MEDS: ZOSYN 3.375GM +NS 50ML IV SCH ×3 (04:40→21:32)
[2023-07-23] MEDS: INSULIN HUMULIN R 100 UNIT/ML 3ML SQ SCH ×6 (07:30→19:51)
[2023-07-23] MEDS: Vitamin B Complex/Vit C/Folic Acid PO SCH (09:05)
[2023-07-23] MEDS: EPOETIN ALFA-EPBX (NON-ESRD) 10,000 UNIT/ML VIAL SQ SCH (09:05)
[2023-07-23] MEDS: FOLIC ACID 1 MG TABLET PO SCH (09:05)
[2023-07-23] MEDS: TRAMADOL HCL 50 MG TABLET PO PRN ×3 (09:06→21:51)
[2023-07-23] MEDS: PANTOPRAZOLE 40 MG TAB DR PO SCH (09:07)
[2023-07-23] MEDS: FLUTICASONE/VILANTEROL 1 EACH AER.POW.BA IH SCH (09:08)
[2023-07-23 09:09] LABS: BASOPHILS # (AUTO) 0.02 K/uL (0.00-0.20); BASOPHILS % (AUTO) 0.5 % (0.0-5.0); EOSINOPHILS # (AUTO) 0.05 K/uL (0.00-0.70); EOSINOPHILS % (AUTO) 1.3 % (0.0-8.0); IMMATURE GRANULOCYTE ABSOLUTE 0.14 K/uL (0-1); LYMPHOCYTES # (AUTO) 1.9 K/uL (1.0-4.8); MEAN CORPUSCULAR HEMOGLOBIN 34.4 pg (27.0-33.0); MEAN CORPUSCULAR VOLUME 118.3 fL (79-99); MONOCYTES # (AUTO) 0.4 K/uL (0.1-1.0); MONOCYTES % (AUTO) 11.6 % (3.0-13.0); NEUTROPHILS # (AUTO) 1.2 K/uL (1.8-7.7); NEUTROPHILS % (AUTO) 32.8 % (40.0-77.0); NUCLEATED RED BLOOD CELLS 43.8 % (0.0-0.19); PLATELET COUNT (AUTO) 93 K/uL (130-400); RED BLOOD CELL COUNT(AUTO) 1.31 MIL/uL (4.50-6.20); RED CELL DISTRIBUTION WIDTH 23.5 % (11.0-15.5); WHITE BLOOD COUNT (AUTO) 3.7 K/uL (4.8-10.8)
[2023-07-23 09:19] LABS: CREATININE 0.8 mg/dL (0.5-1.5)
[2023-07-23 09:23] LABS: ALBUMIN 1.8 g/dL (3.5-5.0); BILIRUBIN,TOTAL 1.3 mg/dL (0.2-1.0); TOTAL PROTEIN, SERUM 5.2 g/dL (6.0-8.3)
[2023-07-23 10:02] LABS: HEMATOCRIT 15.5 % (42-54)
[2023-07-23 10:51] LABS: BAND NEUTROPHILS % (MANUAL) 2 % (0-2); BLASTS, MANUAL % 1 (0-0); LYMPHOCYTES % (MANUAL) 54 % (22-44); MAN.DIFF COMMENT-IMPRESSION MANUAL DIFFERENTIAL; MONOCYTES % (MANUAL) 2 % (2-9); PLATELET MORPHOLOGY COMMENT DECREASED; SEGMENTED NEUTROPHILS % 41 % (40-70); TOTAL CELLS COUNTED 100
[2023-07-23] MEDS: ACETAMINOPHEN WITH CODEINE 1 TAB TAB PO PRN (14:04)
[2023-07-23] MEDS: VANCOMYCIN 1.25 GM/250 ML BAG 250 ML IV SCH (17:00)
[2023-07-23] MEDS: INSULIN GLARGINE 100 UNITS/ML 10 ML VIAL SQ SCH (19:51)
[2023-07-23] MEDS: QUETIAPINE FUMARATE 100 MG TAB PO SCH ×2 (21:00→21:51)
[2023-07-23] MEDS ORDERED: SOD FERRIC GLUC COMPLEX/SUC 125 MG in 0.9%NACL 100ML 100 ML IV SCH (21:00)
[2023-07-23] MEDS: ATORVASTATIN 40 MG TABLET PO SCH (21:32)
[2023-07-23] MEDS: IRON SUCROSE COMPLEX 100 MG/5 ML VIAL IVP SCH (21:33)
[2023-07-23] MEDS: CYANOCOBALAMIN (VITAMIN B-12) 1000 MCG/ML 1ML VIAL IM SCH (21:33)
[2023-07-23] MEDS: TRAZODONE HCL 100 MG TABLET PO PRN (21:51)
[2023-07-24] VITALS (10 sets, daily range): BP systolic 105–123; BP diastolic 42–61; PULSE 76–90; RESP 17–20; O2SAT 90–100
[2023-07-24] MEDS: ZOSYN 3.375GM +NS 50ML IV SCH ×2 (04:32→16:35)
[2023-07-24] MEDS: INSULIN HUMULIN R 100 UNIT/ML 3ML SQ SCH ×7 (04:48→20:48)
[2023-07-24] MEDS: LACTATED RINGERS 1000ML 1,000 ML IV SCH ×2 (09:00→20:46)
[2023-07-24] MEDS: FOLIC ACID 1 MG TABLET PO SCH (09:07)
[2023-07-24] MEDS: FUROSEMIDE 20 MG TABLET PO SCH (09:07)
[2023-07-24] MEDS: PANTOPRAZOLE 40 MG TAB DR PO SCH (09:07)
[2023-07-24] MEDS: Vitamin B Complex/Vit C/Folic Acid PO SCH (09:07)
[2023-07-24] MEDS: TRAMADOL HCL 50 MG TABLET PO PRN ×3 (09:08→22:31)
[2023-07-24] MEDS: FLUTICASONE/VILANTEROL 1 EACH AER.POW.BA IH SCH (09:08)
[2023-07-24] MEDS: VANCOMYCIN 1.25 GM/250 ML BAG 250 ML IV SCH (13:43)
[2023-07-24] MEDS: ACETAMINOPHEN WITH CODEINE 1 TAB TAB PO PRN (14:06)
[2023-07-24] MEDS: CYANOCOBALAMIN (VITAMIN B-12) 1000 MCG/ML 1ML VIAL IM SCH (20:45)
[2023-07-24] MEDS: IRON SUCROSE COMPLEX 100 MG/5 ML VIAL IVP SCH (20:46)
[2023-07-24] MEDS: ATORVASTATIN 40 MG TABLET PO SCH (20:47)
[2023-07-24] MEDS: QUETIAPINE FUMARATE 100 MG TAB PO SCH (20:47)
[2023-07-24] MEDS: INSULIN GLARGINE 100 UNITS/ML 10 ML VIAL SQ SCH (20:49)
[2023-07-24] MEDS: TRAZODONE HCL 100 MG TABLET PO PRN (21:04)
[2023-07-25] VITALS (8 sets, daily range): BP systolic 104–124; BP diastolic 40–70; PULSE 81–101; RESP 16–20; O2SAT 90–100
[2023-07-25] MEDS: LACTATED RINGERS 1000ML 1,000 ML IV SCH (05:00)
[2023-07-25] MEDS: INSULIN HUMULIN R 100 UNIT/ML 3ML SQ SCH ×7 (06:19→20:56)
[2023-07-25] MEDS: TRAMADOL HCL 50 MG TABLET PO PRN (08:29)
[2023-07-25] MEDS: PANTOPRAZOLE 40 MG TAB DR PO SCH (08:29)
[2023-07-25] MEDS: EPOETIN ALFA-EPBX (NON-ESRD) 10,000 UNIT/ML VIAL SQ SCH (08:30)
[2023-07-25] MEDS: FOLIC ACID 1 MG TABLET PO SCH (08:30)
[2023-07-25] MEDS: Vitamin B Complex/Vit C/Folic Acid PO SCH (08:30)
[2023-07-25] MEDS: FLUTICASONE/VILANTEROL 1 EACH AER.POW.BA IH SCH (12:21)
[2023-07-25] MEDS ORDERED: ACETAMINOPHEN WITH CODEINE 1 TAB TAB PO PRN (13:00)
[2023-07-25] MEDS: HYDROMORPHONE 0.5 MG SYG (0.5MG/0.5ML) IVP PRN (14:49)
[2023-07-25] MEDS: CYANOCOBALAMIN (VITAMIN B-12) 1000 MCG/ML 1ML VIAL IM SCH (19:00)
[2023-07-25] MEDS: IRON SUCROSE COMPLEX 100 MG/5 ML VIAL IVP SCH (20:00)
[2023-07-25] MEDS: ATORVASTATIN 40 MG TABLET PO SCH (21:00)
[2023-07-25] MEDS: QUETIAPINE FUMARATE 100 MG TAB PO SCH (21:00)
[2023-07-25] MEDS: INSULIN GLARGINE 100 UNITS/ML 10 ML VIAL SQ SCH (21:00)
[2023-07-26] VITALS (7 sets, daily range): BP systolic 83–122; BP diastolic 46–56; PULSE 84–90; RESP 16–24; O2SAT 100
[2023-07-26] MEDS: HYDROMORPHONE 0.5 MG SYG (0.5MG/0.5ML) IVP PRN ×3 (00:31→09:53)
[2023-07-26] MEDS: LACTATED RINGERS 1000ML 1,000 ML IV SCH ×3 (01:00→19:54)
[2023-07-26 04:52] LABS: BASOPHILS # (AUTO) 0.01 K/uL (0.00-0.20); BASOPHILS % (AUTO) 0.3 % (0.0-5.0); EOSINOPHILS # (AUTO) 0.03 K/uL (0.00-0.70); IMMATURE GRANULOCYTE ABSOLUTE 0.06 K/uL (0-1); LYMPHOCYTES # (AUTO) 1.4 K/uL (1.0-4.8); LYMPHOCYTES % (AUTO) 49.1 % (21.0-51.0); MEAN CORPUSCULAR HEMOGLOBIN 35.3 pg (27.0-33.0); MEAN CORPUSCULAR HGB CONC 29.4 g/dL (32.0-36.0); MEAN CORPUSCULAR VOLUME 119.9 fL (79-99); MONOCYTES # (AUTO) 0.2 K/uL (0.1-1.0); MONOCYTES % (AUTO) 7.2 % (3.0-13.0); NEUTROPHILS # (AUTO) 1.2 K/uL (1.8-7.7); NEUTROPHILS % (AUTO) 40.3 % (40.0-77.0); RED BLOOD CELL COUNT(AUTO) 1.36 MIL/uL (4.50-6.20); RED CELL DISTRIBUTION WIDTH 23.9 % (11.0-15.5); WHITE BLOOD COUNT (AUTO) 2.9 K/uL (4.8-10.8)
[2023-07-26 04:57] LABS: HEMATOCRIT 16.3 % (42-54)
[2023-07-26 05:12] LABS: ALBUMIN 1.8 g/dL (3.5-5.0); BILIRUBIN,TOTAL 0.8 mg/dL (0.2-1.0); CREATININE 0.8 mg/dL (0.5-1.5); POTASSIUM 3.9 mmol/L (3.5-5.1); TOTAL PROTEIN, SERUM 5.5 g/dL (6.0-8.3)
[2023-07-26 05:53] LABS: PLATELET COUNT (AUTO) 64 K/uL (130-400)
[2023-07-26 05:59] LABS: EOSINOPHILS % (MANUAL) 2 % (1-6); LYMPHOCYTES % (MANUAL) 45 % (22-44); MAN.DIFF COMMENT-IMPRESSION MANUAL DIFFERENTIAL; MONOCYTES % (MANUAL) 9 % (2-9); PLATELET MORPHOLOGY COMMENT MARKED DECREASE; SEGMENTED NEUTROPHILS % 44 % (40-70); TOTAL CELLS COUNTED 100; WBC MORPHOLOGY SMUDGE CELLS 1+
[2023-07-26] MEDS: INSULIN HUMULIN R 100 UNIT/ML 3ML SQ SCH ×7 (06:12→21:18)
[2023-07-26] MEDS: FOLIC ACID 1 MG TABLET PO SCH (09:58)
[2023-07-26] MEDS: FUROSEMIDE 20 MG TABLET PO SCH (09:58)
[2023-07-26] MEDS: PANTOPRAZOLE 40 MG TAB DR PO SCH (09:58)
[2023-07-26] MEDS: Vitamin B Complex/Vit C/Folic Acid PO SCH (09:58)
[2023-07-26] MEDS: FLUTICASONE/VILANTEROL 1 EACH AER.POW.BA IH SCH (09:59)
[2023-07-26 10:29] LABS: BILIRUBIN,DIRECT 0.2 mg/dL (0.0-0.3); URIC ACID 5.7 mg/dL (2.6-7.2)
[2023-07-26] MEDS: TRAMADOL HCL 50 MG TABLET PO PRN ×2 (17:03→22:45)
[2023-07-26] MEDS: QUETIAPINE FUMARATE 100 MG TAB PO SCH (21:17)
[2023-07-26] MEDS: ATORVASTATIN 40 MG TABLET PO SCH (21:17)
[2023-07-26] MEDS: CYANOCOBALAMIN (VITAMIN B-12) 1000 MCG/ML 1ML VIAL IM SCH (21:17)
[2023-07-26] MEDS: INSULIN GLARGINE 100 UNITS/ML 10 ML VIAL SQ SCH (21:18)
[2023-07-26] MEDS: TRAZODONE HCL 100 MG TABLET PO PRN (21:25)
[2023-07-27 03:00] VITALS: BP 97/38; PULSE 92; RESP 24
[2023-07-27] MEDS: TRAMADOL HCL 50 MG TABLET PO PRN (03:51)
[2023-07-27] MEDS: INSULIN HUMULIN R 100 UNIT/ML 3ML SQ SCH ×7 (06:11→21:13)
[2023-07-27] MEDS: LACTATED RINGERS 1000ML 1,000 ML IV SCH ×2 (07:00→17:00)
[2023-07-27 07:15] VITALS: O2SAT 100
[2023-07-27] MEDS: HYDROMORPHONE 0.5 MG SYG (0.5MG/0.5ML) IVP PRN ×2 (07:43→20:54)
[2023-07-27] MEDS: FLUTICASONE/VILANTEROL 1 EACH AER.POW.BA IH SCH (09:00)
[2023-07-27] MEDS: Vitamin B Complex/Vit C/Folic Acid PO SCH (09:00)
[2023-07-27] MEDS: PANTOPRAZOLE 40 MG TAB DR PO SCH (09:00)
[2023-07-27] MEDS: FOLIC ACID 1 MG TABLET PO SCH (09:00)
[2023-07-27] MEDS ORDERED: SOLU-MEDROL 125MG VIAL IVP ONE (12:30)
[2023-07-27 14:26] VITALS: TEMP 100.6
[2023-07-27 20:00] VITALS: BP 127/53; PULSE 78; RESP 19; O2SAT 100
[2023-07-27] MEDS: ATORVASTATIN 40 MG TABLET PO SCH (20:54)
[2023-07-27] MEDS: CYANOCOBALAMIN (VITAMIN B-12) 1000 MCG/ML 1ML VIAL IM SCH (20:54)
[2023-07-27] MEDS: QUETIAPINE FUMARATE 100 MG TAB PO SCH (20:56)
[2023-07-27] MEDS: INSULIN GLARGINE 100 UNITS/ML 10 ML VIAL SQ SCH (21:11)
[2023-07-28] VITALS (7 sets, daily range): BP systolic 104–128; BP diastolic 47–59; PULSE 70–77; RESP 16–18; O2SAT 100
[2023-07-28] MEDS: LACTATED RINGERS 1000ML 1,000 ML IV SCH ×3 (04:51→23:00)
[2023-07-28 05:28] LABS: BASOPHILS # (AUTO) 0.01 K/uL (0.00-0.20); BASOPHILS % (AUTO) 0.4 % (0.0-5.0); IMMATURE GRANULOCYTE ABSOLUTE 0.05 K/uL (0-1); LYMPHOCYTES # (AUTO) 0.8 K/uL (1.0-4.8); LYMPHOCYTES % (AUTO) 33.2 % (21.0-51.0); MEAN CORPUSCULAR HEMOGLOBIN 35.1 pg (27.0-33.0); MEAN CORPUSCULAR HGB CONC 28.5 g/dL (32.0-36.0); MEAN CORPUSCULAR VOLUME 123.2 fL (79-99); MONOCYTES # (AUTO) 0.1 K/uL (0.1-1.0); NEUTROPHILS # (AUTO) 1.4 K/uL (1.8-7.7); NEUTROPHILS % (AUTO) 58.2 % (40.0-77.0); NUCLEATED RED BLOOD CELLS 6.5 % (0.0-0.19); PLATELET COUNT (AUTO) 71 K/uL (130-400); RED BLOOD CELL COUNT(AUTO) 1.51 MIL/uL (4.50-6.20); WHITE BLOOD COUNT (AUTO) 2.3 K/uL (4.8-10.8)
[2023-07-28 05:32] LABS: HEMATOCRIT 18.6 % (42-54)
[2023-07-28 05:48] LABS: ALBUMIN 1.7 g/dL (3.5-5.0); BILIRUBIN,TOTAL 0.7 mg/dL (0.2-1.0)
[2023-07-28] MEDS: INSULIN HUMULIN R 100 UNIT/ML 3ML SQ SCH ×7 (07:06→22:00)
[2023-07-28] MEDS: PANTOPRAZOLE 40 MG TAB DR PO SCH (08:00)
[2023-07-28] MEDS: TRAMADOL HCL 50 MG TABLET PO PRN (08:00)
[2023-07-28] MEDS: Vitamin B Complex/Vit C/Folic Acid PO SCH (08:00)
[2023-07-28] MEDS: FLUTICASONE/VILANTEROL 1 EACH AER.POW.BA IH SCH (08:01)
[2023-07-28] MEDS: FOLIC ACID 1 MG TABLET PO SCH (08:01)
[2023-07-28] MEDS: FUROSEMIDE 20 MG TABLET PO SCH (08:01)
[2023-07-28] MEDS: EPOETIN ALFA-EPBX (NON-ESRD) 10,000 UNIT/ML VIAL SQ SCH (19:03)
[2023-07-28] MEDS: TRAZODONE HCL 100 MG TABLET PO PRN (21:47)
[2023-07-28] MEDS: QUETIAPINE FUMARATE 100 MG TAB PO SCH (21:47)
[2023-07-28] MEDS: ATORVASTATIN 40 MG TABLET PO SCH (21:47)
[2023-07-28] MEDS: INSULIN GLARGINE 100 UNITS/ML 10 ML VIAL SQ SCH (22:01)
[2023-07-28] MEDS: CYANOCOBALAMIN (VITAMIN B-12) 1000 MCG/ML 1ML VIAL IM SCH (22:02)
[2023-07-29] VITALS (8 sets, daily range): BP systolic 110–129; BP diastolic 51–61; PULSE 78–95; RESP 16–24; O2SAT 98–100
[2023-07-29] MEDS: INSULIN HUMULIN R 100 UNIT/ML 3ML SQ SCH ×7 (06:41→20:14)
[2023-07-29] MEDS: LACTATED RINGERS 1000ML 1,000 ML IV SCH ×2 (09:00→19:00)
[2023-07-29] MEDS: PANTOPRAZOLE 40 MG TAB DR PO SCH (09:41)
[2023-07-29] MEDS: FOLIC ACID 1 MG TABLET PO SCH (09:41)
[2023-07-29] MEDS: Vitamin B Complex/Vit C/Folic Acid PO SCH (09:41)
[2023-07-29] MEDS: FLUTICASONE/VILANTEROL 1 EACH AER.POW.BA IH SCH (09:41)
[2023-07-29] MEDS: TRAMADOL HCL 50 MG TABLET PO PRN ×2 (09:44→15:53)
[2023-07-29] MEDS: HYDROMORPHONE 0.5 MG SYG (0.5MG/0.5ML) IVP PRN (17:27)
[2023-07-29] MEDS: ATORVASTATIN 40 MG TABLET PO SCH (20:01)
[2023-07-29] MEDS: QUETIAPINE FUMARATE 100 MG TAB PO SCH (20:01)
[2023-07-29] MEDS: CYANOCOBALAMIN (VITAMIN B-12) 1000 MCG/ML 1ML VIAL IM SCH (20:02)
[2023-07-29] MEDS: TRAZODONE HCL 100 MG TABLET PO PRN (20:09)
[2023-07-29] MEDS: INSULIN GLARGINE 100 UNITS/ML 10 ML VIAL SQ SCH (20:17)
[2023-07-30] VITALS (8 sets, daily range): BP systolic 108–128; BP diastolic 56–82; PULSE 62–81; RESP 16–24; O2SAT 96–98
[2023-07-30] MEDS: HYDROMORPHONE 0.5 MG SYG (0.5MG/0.5ML) IVP PRN ×2 (01:09→10:14)
[2023-07-30] MEDS: LACTATED RINGERS 1000ML 1,000 ML IV SCH (04:21)
[2023-07-30] MEDS: INSULIN HUMULIN R 100 UNIT/ML 3ML SQ SCH ×2 (05:27→06:42)
[2023-07-30] MEDS: FOLIC ACID 1 MG TABLET PO SCH (08:18)
[2023-07-30] MEDS: FUROSEMIDE 20 MG TABLET PO SCH (08:18)
[2023-07-30] MEDS: PANTOPRAZOLE 40 MG TAB DR PO SCH (08:18)
[2023-07-30] MEDS: Vitamin B Complex/Vit C/Folic Acid PO SCH (08:18)
[2023-07-30] MEDS: FLUTICASONE/VILANTEROL 1 EACH AER.POW.BA IH SCH (08:21)
[2023-07-30 08:40] LABS: BASOPHILS # (AUTO) 0.01 K/uL (0.00-0.20); BASOPHILS % (AUTO) 0.4 % (0.0-5.0); EOSINOPHILS # (AUTO) 0.02 K/uL (0.00-0.70); EOSINOPHILS % (AUTO) 0.7 % (0.0-8.0); HEMATOCRIT 22.2 % (42-54); IMMATURE GRANULOCYTE ABSOLUTE 0.02 K/uL (0-1); LYMPHOCYTES # (AUTO) 1.5 K/uL (1.0-4.8); LYMPHOCYTES % (AUTO) 55.2 % (21.0-51.0); MEAN CORPUSCULAR HEMOGLOBIN 35.5 pg (27.0-33.0); MEAN CORPUSCULAR HGB CONC 29.3 g/dL (32.0-36.0); MEAN CORPUSCULAR VOLUME 121.3 fL (79-99); MONOCYTES # (AUTO) 0.2 K/uL (0.1-1.0); NUCLEATED RED BLOOD CELLS 4.8 % (0.0-0.19); PLATELET COUNT (AUTO) 152 K/uL (130-400); RED BLOOD CELL COUNT(AUTO) 1.83 MIL/uL (4.50-6.20); RED CELL DISTRIBUTION WIDTH 21.1 % (11.0-15.5); WHITE BLOOD COUNT (AUTO) 2.7 K/uL (4.8-10.8)
[2023-07-30 08:46] LABS: CREATININE 0.9 mg/dL (0.5-1.5); POTASSIUM 4.3 mmol/L (3.5-5.1)
[2023-07-30 08:51] LABS: ALBUMIN 1.9 g/dL (3.5-5.0); BILIRUBIN,TOTAL 0.9 mg/dL (0.2-1.0); TOTAL PROTEIN, SERUM 5.9 g/dL (6.0-8.3)
[2023-07-30 10:08] LABS: LYMPHOCYTES % (MANUAL) 64 % (22-44); MONOCYTES % (MANUAL) 2 % (2-9); SEGMENTED NEUTROPHILS % 34 % (40-70); TOTAL CELLS COUNTED 100
[2023-07-30 10:09] LABS: MAN.DIFF COMMENT-IMPRESSION MANUAL DIFFERENTIAL
[2023-07-30 10:10] LABS: PLATELET MORPHOLOGY COMMENT ADEQUATE
[2023-07-30] MEDS: LACTULOSE 20 GM/30 ML UDCUP PO PRN (10:14)
[2023-07-30] MEDS: EPOETIN ALFA-EPBX (NON-ESRD) 10,000 UNIT/ML VIAL SQ SCH (10:27)
[2023-07-30] MEDS ORDERED: HYDROMORPHONE 0.5 MG SYG (0.5MG/0.5ML) ONE (19:04)
[2023-07-30] MEDS: CYANOCOBALAMIN (VITAMIN B-12) 1000 MCG/ML 1ML VIAL IM SCH (19:27)
[2023-07-30] MEDS ORDERED: HYDROMORPHONE 0.5 MG SYG (0.5MG/0.5ML) IVP PRN (19:30)
[2023-07-30] MEDS: QUETIAPINE FUMARATE 100 MG TAB PO SCH (20:34)
[2023-07-30] MEDS: ATORVASTATIN 40 MG TABLET PO SCH (20:34)
[2023-07-30] MEDS: TRAZODONE HCL 100 MG TABLET PO PRN (20:34)
[2023-07-31] VITALS: BP 139/75; PULSE 75; RESP 24
[2023-07-31 02:00] VITALS: PULSE 75; RESP 18; O2SAT 100
[2023-07-31 04:00] VITALS: BP 116/55; PULSE 79; RESP 20
[2023-07-31 08:00] VITALS: BP 112/76; PULSE 79; RESP 17; O2SAT 96
[2023-07-31] MEDS: FLUTICASONE/VILANTEROL 1 EACH AER.POW.BA IH SCH (09:00)
[2023-07-31] MEDS: FOLIC ACID 1 MG TABLET PO SCH (09:01)
[2023-07-31] MEDS: FUROSEMIDE 20 MG TABLET PO SCH (09:01)
[2023-07-31] MEDS: PANTOPRAZOLE 40 MG TAB DR PO SCH (09:01)
[2023-07-31] MEDS: Vitamin B Complex/Vit C/Folic Acid PO SCH (09:01)
[2023-07-31] MEDS: LACTULOSE 20 GM/30 ML UDCUP PO PRN (09:01)
[2023-07-31 12:00] VITALS: BP 117/63; PULSE 83; RESP 16
[2023-07-31 16:00] VITALS: BP 130/64; PULSE 80; RESP 19
== END 2023-07-31 17:20 | DRG 562 ==
LOC: EDH 13:05 → EDHIP 18:34 → 4DH 21:49
PROVIDERS: ADMIT Hospitalist; ATTEND Hospitalist
DX: S42.211A Unspecified displaced fracture of surgical neck of right humerus, initial encounter for closed fracture (principal); A41.9 Sepsis, unspecified organism; D61.818 Other pancytopenia; E44.1 Mild protein-calorie malnutrition; I13.0 Hypertensive heart and chronic kidney disease with heart failure and stage 1 through stage 4 chronic kidney disease, or unspecified chronic kidney disease; R45.851 Suicidal ideations; E87.6 Hypokalemia; D50.9 Iron deficiency anemia, unspecified; E03.9 Hypothyroidism, unspecified; D46.9 Myelodysplastic syndrome, unspecified; D63.8 Anemia in other chronic diseases classified elsewhere; E11.22 Type 2 diabetes mellitus with diabetic chronic kidney disease; E78.5 Hyperlipidemia, unspecified; F20.9 Schizophrenia, unspecified; F31.9 Bipolar disorder, unspecified; F43.10 Post-traumatic stress disorder, unspecified; I09.9 Rheumatic heart disease, unspecified; I25.10 Atherosclerotic heart disease of native coronary artery without angina pectoris; I48.91 Unspecified atrial fibrillation; I50.9 Heart failure, unspecified; N18.9 Chronic kidney disease, unspecified; Z53.1 Procedure and treatment not carried out because of patient's decision for reasons of belief and group pressure; Z74.01 Bed confinement status; Z79.01 Long term (current) use of anticoagulants; Z83.3 Family history of diabetes mellitus; Z95.1 Presence of aortocoronary bypass graft; Z96.653 Presence of artificial knee joint, bilateral; W01.0XXA Fall on same level from slipping, tripping and stumbling without subsequent striking against object, initial encounter; Y92.009 Unspecified place in unspecified non-institutional (private) residence as the place of occurrence of the external cause; Z68.27 Body mass index [BMI] 27.0-27.9, adult; Y93.01 Activity, walking, marching and hiking; Z66 Do not resuscitate; Z88.8 Allergy status to other drugs, medicaments and biological substances
CPT/HCPCS: 36415; 70450; 71045; 73030; 73060; 76700; 80048; 80053; 80202; 82140; 82248; 82435; 82607; 82746; 82803; 82947; 82948; 83036; 83540; 83550; 83605; 83735; 83880; 84132; 84295; 84484; 84550; 85014; 85018; 85025; 85027; 85610; 87040; 87635; 87804; 87880; 93971; 94640; 94664; A4565; C9113; G0378; J0696; J1170; J1630; J1756; J1815; J1885; J2270; J2405; J2543; J2930; J3411; J3420; J3490; J7030; J7050; J7120; 3370; Q5106